=== PATIENT | male | born 1990 | race Caucasian/White ===

== ENCOUNTER 2021-12-04 16:25 | Inpatient (IN) | payer OTHER, SELFPAY ==
--- NOTE | 2021-12-04 16:31 | W.ED.PSYCHS ---
HPI - Psych General: Chief Complaint: Psychiatric Symptoms Stated Complaint: SI ATTEMPT Time Seen by Provider: 12/04/21 16:29 Source: patient Mode of arrival: EMS History of Present Illness: 31-year-old male presents to the emergency room via EMS after a suicide attempt at [facility]. Patient has a history of schizophrenia he was on antipsychotics he stopped taking them approximately 6 to 7 days ago. Dates he is been hearing voices and had time to kill himself and tried to kill himself by using a belt on his neck. He is complaining of some laryngeal discomfort is not had any difficulty breathing. He did not have any loss of consciousness he denies any other attempt to harm himself. He is unsure what his previous medication was. Patient has history of drug and alcohol abuse related to DUIs which resulted in a court ordered stay at [facility] complaint: suicidal ideation Onset (ago): minute(s) Duration: constant History of same: Yes Relieving factors: medication Exacerbating factors: none Associated symptoms: Reports auditory hallucinations and suicidal ideation If self harm: admits thoughts of self harm, has plan and has acted on plan Details of plan: Attempts to harm himself by hanging himself with a belt Review of Systems Const: Denies: fever(s), chills, body aches, change in appetite, fatigue or malaise ENMT: Reports: throat pain, odynophagia and hoarseness; Denies: ear or mastoid pain, nasal discharge or nasal congestion Card: Denies: chest pain, edema, dyspnea on exertion or orthopnea Resp: Denies: dyspnea, productive cough or non-productive cough GI: Denies: abdominal pain, nausea, vomiting, hematemesis, coffee ground emesis, diarrhea, constipation, bloating, hematochezia or melena Psych: Reports: auditory hallucinations and suicidal ideation PFS ED PFSH: Medical History Schizophrenia Surgical History No significant past surgical history Social History Alcohol intake: current Substance/Drug Use: current Physical Exam Const: GENERAL APPEARANCE: cooperative and comfortable ORIENTATION/CONSCIOUSNESS: Yes awake, Yes oriented to person, Yes oriented to place and Yes oriented to time HENMT: COMMON NORMALS: normocephalic, atraumatic and hearing grossly normal bilaterally HEAD & SCALP: normocephalic and atraumatic Neck/C-Spine: COMMON NORMALS: full ROM, no lymphadenopathy, supple and no JVD Resp: COMMON NORMALS: normal respiratory effort, No retractions, No use of accessory muscles and clear to auscultation bilaterally AUSCULTATION: clear to auscultation bilaterally Cardio: COMMON NORMALS: no JVD, regular rate, regular rhythm and No murmurs present (Cardio) RATE: regular rate RHYTHM: regular rhythm GI: COMMON NORMALS: Soft to palpation and No hepatosplenomegaly present AUSCULTATION: Yes normoactive bowel sounds PALPATION: Yes Soft to palpation, No Tenderness to palpation present (GI), No Guarding due to palpation present (GI) and Yes No hepatosplenomegaly present Extremity: COMMON NORMALS: normal to inspection, capillary refill normal, no clubbing, cyanosis or edema, no calf tenderness and no pedal edema Neuro: SENSORIUM/ORIENTATION: Yes oriented to person, Yes oriented to place and Yes oriented to time Skin: COMMON NORMALS: no rashes or lesions noted GENERAL SKIN EXAM: no rashes or lesions noted Course Vital Signs: Vital signs: Vital Signs Temperature 98 F 12/06/21 06:00 Pulse Rate 88 12/06/21 06:00 Respiratory Rate 16 12/06/21 06:00 Blood Pressure 96/60 12/06/21 06:00 Pulse Oximetry 97 12/06/21 06:[address] [facility] - Psych Medical Decision Making Patient is acutely psychotic with auditory visual hallucination as well as suicidal ideation with attempt to advance lethality by hanging himself. CT of the neck is unremarkable discussed Dr. Burgess orders written admit for acute psychosis and suicidal ideation with attempt. Lab Data I reviewed the patient's lab results. : 12/04/21 17:40 12/04/21 17:[address] 12/04/21 16:37 IMPRESSION: 1. No acute findings. 2. Incidental findings above. Laboratory Results WBC 8.0 10^3/uL (4.0-10.0) 12/04/21 17:40 RBC 4.34 10^6/uL (4.1-5.3) 12/04/21 17:40 Hgb 12.9 g/dL (11.7-16.6) 12/04/21 17:40 Hct 40.2 % (42.0-52.0) L 12/04/21 17:40 MCV 92.6 fl (80-94) 12/04/21 17:40 MCH 29.7 pg (28.0-34.0) 12/04/21 17:40 MCHC 32.1 g/dL (30.0-36.0) 12/04/21 17:40 RDW 12.7 % (12.1-15.1) 12/04/21 17:40 Plt Count 179 10^3/cmm (130-400) 12/04/21 17:40 MPV 11.2 fL (7.4-10.4) H 12/04/21 17:40 Neut % (Auto) 56.7 % 12/04/21 17:40 Lymph % (Auto) 28.4 % 12/04/21 17:40 Lee % (Auto) 8.0 % 12/04/21 17:40 Eos % (Auto) 5.8 % 12/04/21 17:40 Baso % (Auto) 1.0 % 12/04/21 17:40 Neut # (Auto) 4.56 10^3/uL (1.8-7.7) 12/04/21 17:40 Lymph # (Auto) 2.3 10^3/uL (0.8-4.8) 12/04/21 17:40 Lee # (Auto) 0.6 10^3/uL (0.2-0.9) 12/04/21 17:40 Eos # (Auto) 0.5 10^3/uL (0.0-0.8) 12/04/21 17:40 Baso # (Auto) 0.1 10^3/uL (0.0-0.1) 12/04/21 17:40 Nucleated RBC % (auto) 0 % 12/04/21 17:40 Nucleated RBCs # 0.0 /100WBC 12/04/21 17:40 Sodium 137 mmol/L (136-145) 12/04/21 17:40 Potassium 4.1 mmol/L (3.5-5.1) 12/04/21 17:40 Chloride 102 mmol/L (98-107) 12/04/21 17:40 Carbon Dioxide 23 mmol/L (22-29) 12/04/21 17:40 Anion Gap 16.1 (5-19) 12/04/21 17:40 BUN 11 mg/dL (6-20) 12/04/21 17:40 Creatinine 0.7 mg/dL (0.7-1.2) 12/04/21 17:40 GFR Calculation 130.7 mL/min (90-130) H 12/04/21 17:40 Glucose 85 mg/dL (65-115) 12/04/21 17:40 Calculated Osmolality 283 mOsm/kg (285-295) L 12/04/21 17:40 Calcium 9.3 mg/dL (8.5-10.5) 12/04/21 17:40 Total Bilirubin 0.2 mg/dL (0.15-1.2) 12/04/21 17:40 AST 32 U/L (0-40) 12/04/21 17:40 ALT 40 U/L (0-41) 12/04/21 17:40 Alkaline Phosphatase 108 IU/L (40-130) 12/04/21 17:40 Total Protein 6.8 g/dL (6.6-8.7) 12/04/21 17:40 Albumin 4.1 g/dL (3.5-5.2) 12/04/21 17:40 Globulin 2.7 g/dL (1.3-4.6) 12/04/21 17:40 Salicylates < 0.3 mg/dL (3-10) L 12/04/21 17:40 Acetaminophen < 5.0 ug/mL (10-30) L 12/04/21 17:40 Discharge Plan Discharge Admit Provider: Geremias Burgess Condition: Stable Coding Level of Care Code ED Server Programmer for Chg Fwd Exam Comprehensive
[2021-12-04 16:33] VITALS: BMI 29.8
--- NOTE | 2021-12-04 16:37 | CTR_ITS ---
PROCEDURE INFORMATION: Exam: CT Neck With Contrast Exam date and time: 12/04/2021 4:37 PM Age: 31 years old Clinical indication: Injury or trauma; Constriction/strangulation; Patient HX: Strangulation attempted suicide; Additional info: Strangulation injury to the neck TECHNIQUE: Imaging protocol: Computed tomography images of the neck with contrast. Radiation optimization: All CT scans at this facility use at least one of these dose optimization techniques: automated exposure control; mA and/or kV adjustment per patient size (includes targeted exams where dose is matched to clinical indication); or iterative reconstruction. Contrast material: OMNI 300; Contrast volume: 95 ml; Contrast route: INTRAVENOUS (IV); COMPARISON: No relevant prior studies available. RADIATION DOSE METRICS: Total DLP (mGy-cm): 521.98 FINDINGS: Brain: The visible portion of the brain is normal. Orbital cavity: The orbits are unremarkable. Mastoid air cells: Trace right mastoid effusion. Coalescent air-filled left mastoid air cells communicate with the middle ear cavity. There is cerumen filling the left external auditory canal. Paranasal sinuses: Mucosal thickening ethmoid sinuses and mucous retention cyst in the left maxillary sinus. There is no fluid in the paranasal sinuses to suggest acute sinusitis. Nasopharynx: The nasopharynx is unremarkable. There is no significant pharyngeal tonsillar enlargement. Dental: Multiple bilateral dental caries. Oropharynx: The oropharynx is unremarkable. There is no significant palatine tonsillar enlargement. Hypopharynx: The hypopharynx is unremarkable. There is no significant lingual tonsillar enlargement. Larynx: The larynx and epiglottis are normal. Retropharyngeal space: There is no fluid or edema in the retropharyngeal space. Submandibular/Parotid glands: Normal. Glands are normal in size. Thyroid: The thyroid gland is unremarkable. Lymph nodes: There is no cervical or supraclavicular lymphadenopathy. Trachea: The visible portion of the trachea is normal. Lungs: Lung apices are clear. Bones/joints: Spinal alignment is normal. Vertebral body height is maintained. There is mild degenerative disc disease in the cervical spine. No acute fracture. Vasculature: The carotid and vertebral arteries and internal jugular veins are unremarkable as visualized. Soft tissues: No edema. CT/CT neck w con* [id number] IMPRESSION: 1. No acute findings. 2. Incidental findings above.
[2021-12-04 16:41] VITALS: BP 136/82; PULSE 85; RESP 17; TEMP 37; O2SAT 98
[2021-12-04] MEDS: iohexol 300 mg/mL 100 mL Btl IV (16:55)
[2021-12-04 17:58] LABS: Basophils # 0.1 10^3/uL (0.0-0.1); Eosinophils # 0.5 10^3/uL (0.0-0.8); Eosinophils % 5.8 %; Hematocrit 40.2 % (42.0-52.0); Hemoglobin 12.9 g/dL (11.7-16.6); Lymphocytes # 2.3 10^3/uL (0.8-4.8); Lymphocytes % 28.4 %; Mean Corpuscular HGB Conc 32.1 g/dL (30.0-36.0); Mean Corpuscular Hemoglobin 29.7 pg (28.0-34.0); Mean Corpuscular Volume 92.6 fl (80-94); Mean Platelet Volume 11.2 fL (7.4-10.4); Monocytes # 0.6 10^3/uL (0.2-0.9); Neutrophils # 4.56 10^3/uL (1.8-7.7); Neutrophils % 56.7 %; Nucleated Red Blood Cells % 0 %; Platelet Count 179 10^3/cmm (130-400); Red Blood Count 4.34 10^6/uL (4.1-5.3); Red Cell Distribution Width 12.7 % (12.1-15.1)
[2021-12-04 18:34] LABS: Alanine Aminotransferase 40 U/L (0-41); Albumin Level 4.1 g/dL (3.5-5.2); Alkaline Phosphatase 108 IU/L (40-130); Anion Gap 16.1 (5-19); Aspartate Amino Transferase 32 U/L (0-40); Blood Urea Nitrogen 11 mg/dL (6-20); Calcium 9.3 mg/dL (8.5-10.5); Carbon Dioxide 23 mmol/L (22-29); Chloride 102 mmol/L (98-107); Globulin 2.7 g/dL (1.3-4.6); Glomerular Filtration Rate 130.7 mL/min (90-130); Glucose 85 mg/dL (65-115); Osmolality Calculated 283 mOsm/kg (285-295); Potassium 4.1 mmol/L (3.5-5.1); Sodium 137 mmol/L (136-145); Total Bilirubin 0.2 mg/dL (0.15-1.2); Total Protein 6.8 g/dL (6.6-8.7)
[2021-12-04 18:41] LABS: Acetaminophen < 5.0 ug/mL (10-30); Salicylate < 0.3 mg/dL (3-10)
--- NOTE | 2021-12-04 19:22 | PC.NURSE ---
Attempted to call report at this time and they was told the NPU staff was still in report.
[2021-12-04 19:44] VITALS: BP 132/78; PULSE 78; RESP 18; O2SAT 96
[2021-12-04 20:00] VITALS: BP 136/90; PULSE 80; RESP 17; TEMP 36.8; O2SAT 97
[2021-12-04] MEDS: nicotine 2 mg Gum BUCCAL (20:42)
[2021-12-04] MEDS: hyDROXYzine 25 mg Capsule 50 MG PO (20:42)
[2021-12-04] MEDS: trazodone 50 mg Tablet PO (20:42)
[2021-12-04] MEDS: OLANZapine 5 mg ODT PO (21:46)
[2021-12-04] MEDS: buprenorphine-naloxone 4-1 mg Film 2 EACH SUBLINGUAL (21:46)
[2021-12-05 05:43] VITALS: BP 115/69; PULSE 100; RESP 20; TEMP 36.6; O2SAT 97
[2021-12-05 06:00] VITALS: BMI 29.8
[2021-12-05] MEDS: buprenorphine-naloxone 4-1 mg Film 2 EACH SUBLINGUAL ×3 (06:16→16:47)
[2021-12-05] MEDS: hyDROXYzine 25 mg Capsule 50 MG PO ×3 (06:16→20:43)
[2021-12-05] MEDS: nicotine 2 mg Gum BUCCAL ×5 (06:16→20:43)
[2021-12-05] MEDS: OLANZapine 5 mg TABLET 15 MG PO (08:54)
[2021-12-05] MEDS: escitalopram 10 mg Tablet PO (08:54)
[2021-12-05] MEDS: OLANZapine 5 mg ODT PO (11:50)
[2021-12-05 14:00] VITALS: BP 100/61; PULSE 71; RESP 18; TEMP 36.3; O2SAT 93
[2021-12-05] MEDS: paliperidone ER 6 mg Tablet PO (14:06)
--- NOTE | 2021-12-05 14:33 | P.NPUHP_ITS ---
Providers/Chief Complaint Admitting Physician: Geremias Burgess MD Chief Complaint: SI ATTEMPT HPI NPU History of Present Illness Adrian Pike is a 31 year old male who presented to the emergency department with the following report: Stated Complaint: SI ATTEMPT Time Seen by Provider: 12/04/21 16:29 Source: patient Mode of arrival: EMS History of Present Illness:?? 31-year-old male presents to the emergen cy room via EMS after a suicide attempt at [facility].? Patient has a history of schizophrenia he was on antipsychotics he stopped taking them approximately 6 to 7 days ago.? Dates he is been hearing voices and had time to kill himself and tried to kill himself by using a belt on his neck.? He is complaining of some laryngeal discomfort is not had any difficulty breathing.? He did not have any loss of consciousness he denies any other attempt to harm himself.? He is unsure what his previous medication was.? Patient has history of drug and alcohol abuse related to DUIs which resulted in a court ordered stay at [facility] complaint: suicidal ideation Onset (ago): minute(s) Duration: constant History of same: Yes Relieving factors: medication Exacerbating factors: none Associated symptoms: Reports auditory hallucinations and suicidal ideation If self harm: admits thoughts of self harm, has plan and has acted on plan Details of plan: Attempts to harm himself by hanging himself with a belt He was admitted to the neuropsychiatric unit for definitive treatment of those issues. He presents today reporting that he has been hospitalized once before in [place], [place] and reports that he did outpatient services at [facility]. He reports he is on Lexapro, Suboxone, and Zyprexa. He reports he smokes about three cigarettes a day, denies alcohol, marijuana or any other illicit drugs. He reports that he has had a problem with opiates and methamphetamine as well reporting that he has been on Suboxone for about two years. In July, he did relapse with methamphetamines and opiates. He reports that he has been to rehab about five times and was currently in [facility] before he came here. He reports he has had two DUIs in the past but denies any possession charges or specifically drug related charges. He reports that he first started having issues when he was about 20 years old and started using drugs. He reports he has always 'kind of had issues' but nothing that could be pinpointed. He reports th at he started out with pain pills and then he had full blown addiction; he reports that he has had methamphetamine use sporadically in his life but reports that he has never before heard voices in his life but last July he was initially focusing on the fact he had stopped taking his Klonopin which he reports was very helpful in stopping the voices back in July. What he did not share initially was methamphetamines were a significant part of his use during this time when he first heard voices. We had a long discussion about the impact methamphetamine can have in perceptual disturbances. He reports that in general he had done pretty well with his addiction in the previous five years prior to July. He reports he has never had a suicide attempt but he does report that he did have some self injurous behavior during the time in July when he was using methamphetamine and had tried acid as well. We discussed the risks, benefits and alternatives of discontinuing the Zyprexa eventually but initiating Invega 6mg q daily and he understood and agreed to proceed as is documented in this note. We agreed we would also take a look at his anxiety medication moving forward as well. He had endorsed lethality but on a certain level there were concerns about malingering because as soon as we had a conversation about the medications, he was very focused on when he would be discharged. Psychiatric History: As above. Substance Abuse History: As above Family History: He reports mental health and addiction issues on his father's side of the family but denies suicide attempts or completions on either side of the family. Developmental History: He denies any issues with his or delivery, learned to walk and talk and met his developmental milestones ontime, but reports he did have speech therapy when he went to school. Denies needing learning support, emotional support or special education classes. Psychosocial History: He reports his parents were together when he was born and stayed together until he was around [age] years old. He also shared the reason his parents was his father went to detention and his mother eventually ended up marrying someone else which he reports was a fairly stressful moment in his life. He reports he has a younger sister who is a product of the same union but denies any other siblings from his mother or father. He reports that his childhood was good and denies any emotional, physical or sexual abuse. He denied any other avery or traumas in his life. 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 He endorses being heterosexual with his longest relationship being two and a half years. He reports he has been and once, denies any children. He has never been in the and endorses being a Pentecostal. 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 He reports that he is at [facility] now but reports that when he is not, he has his own house where he lives alone. He reports that recently he had been living with his mother secondary to having a roommate that he allowed to stay with him who had drugs all the time which made it very difficult for him to manage his sobriety. Legal History: He reports he has been in longterm three times for two days which he called a 'shock treatment'. Medical History: He denies any significant medical issues though his BMI is borderline obese. Meds NPU Home Medications Medication Instructions Recorded Confirmed Last Taken Type escitalopram oxalate 10 mg tablet 10 mg PO DAILY 12/04/21 12/04/21 12/04/21 History hydroxyzine HCl 25 mg tablet 25 mg PO Q6H PRN 12/04/21 12/04/21 Unknown History olanzapine 15 mg tablet 15 mg PO DAILY 12/04/21 12/04/21 Unknown History trazodone 50 mg tablet 50 mg PO BEDTIME 12/04/21 12/04/21 12/03/21 History Allergies Allergy/AdvReac Type Severity Reaction Status Date / Time No Known Allergies Allergy Verified 12/04/21 16:30 [facility] NPU PFSH: Medical History (Updated 12/05/21 @ 19:30 by Geremias Burgess MD) Schizophrenia Surgical History (Updated 12/04/21 @ 16:44 by Guille Melara DO) No significant past surgical history Social History (Updated 12/04/21 @ 16:44 by Guille Melara DO) Alcohol intake: current Substance/Drug Use: current Mental Status Exam MSE Comments: This is an overweight versus obese white male in hospital scrubs with limited grooming and eye contact. No abnormal movements except for mild psychomotor retardation. Cooperative with exam in no acute distress. Speech was normal rate and decreased volume. Patient mood described as anxious, affect slightly subdued. Thought process, organized. Thought content: patient denies any suicidal or homicidal ideation, he endorsed paranoia but no delusions were noted, and he endorsed auditory hallucinations but denied visual hallucinations but did not appear to be attending to internal stimuli. Attention and concentration were intact and memory appeared reliable but was not formally tested. He is alert and oriented three times. Insight and judgement appear limited. Impulse control is limited. Vitals/I&O/Wt Last Vital Signs Temp 97.3 F L 12/05/21 14:00 Pulse 71 12/05/21 14:00 Resp 18 12/05/21 14:00 BP 100/61 12/05/21 14:00 Pulse Ox 93 12/05/21 14:00 Weight last 48 hrs Weight 83.915 kg Data NPU : 12/04/21 17:40 12/04/21 17:40 A&P Assessment and plan (1) Schizophrenia: Status: Acute (2) Opioid dependence on agonist therapy: Status: Acute (3) Methamphetamine dependence: Status: Acute (4) Auditory hallucination: Status: Acute Plan This is a 31 year old white male with a long history of addiction, more recent history of auditory hallucinations which he reports some are command in nature telling him to kill himself, with significant issues with opiates and methamphetamines who presents from [facility] reporting that his symptoms are not currently being managed by his medications. 1. Continue all current medication except initiate Invega 6mg po am and plan to discontinue Zyprexa and will consider Propranolol or Neurontin to assist with anxiety after he has demonstrated tolerating the Invega today. 2. Encourage individual, group and milieu therapy 3. Continue q-15 minute check for safety 4. Recommend sober living treatment at the highest level of care to which the patient is willing to commit. Involuntary Hold Information 96 Hour Hold: 96 Hour Involuntary Admission: No Attestations NPU Medical Necessity Statement*: Inpatient hospitalization is medically necessary and the clinically appropriate intervention at this time. We will monitor medications and make changes as indicated. Patient will be in the hospital for over two midnights. Likely length of stay is two to four days Coding Level of Care Code Acute Social Sciences Professor for Miko Babb Diagnoses Schizophrenia F20.9 Opioid dependence on agonist therapy F11.20 Methamphetamine dependence F15.20 Auditory hallucination R44.0
[2021-12-05] MEDS: trazodone 50 mg Tablet PO (20:43)
[2021-12-05 20:50] VITALS: BP 114/67; PULSE 71; RESP 17; TEMP 36.7; O2SAT 97
[2021-12-06] MEDS: nicotine 2 mg Gum BUCCAL ×4 (02:54→11:48)
[2021-12-06 06:00] VITALS: BP 96/60; PULSE 88; RESP 16; TEMP 36.6; O2SAT 97
[2021-12-06] MEDS: buprenorphine-naloxone 4-1 mg Film 2 EACH SUBLINGUAL ×2 (06:29→11:48)
[2021-12-06] MEDS: paliperidone ER 6 mg Tablet PO (09:45)
[2021-12-06] MEDS: escitalopram 10 mg Tablet PO (09:45)
[2021-12-06] MEDS: OLANZapine 5 mg TABLET 15 MG PO (09:45)
--- NOTE | 2021-12-06 13:05 | NPU.GN ---
[facility] Unit Group Topic: Whine Barrel Activity General Mood of Group: Adrian did attend and participate in group today. His hygiene was good. He was social with others.
--- NOTE | 2021-12-06 13:54 | P.NPUDS_ITS ---
Diagnoses at Discharge Discharge Diagnosis (1) Schizophrenia: Status: Acute (2) Opioid dependence on agonist therapy: Status: Acute (3) Methamphetamine dependence: Status: Acute (4) Auditory hallucination: Status: Acute Reason for Visit Reason for Visit: SI ATTEMPT Brief History: History of Present Illness Adrian Pike is a 31 year old male who presented to the emergency department with the following report: Stated Complaint: SI ATTEMPT Time Se en by Provider: 16:29 [facility] e: patient Mode of arrival: EMS? ? History of Present Illness:??? 31-year-old male presents to the em ergency room via E [facility] after a suicide attempt at [facility].? Patient h as a history of sc hizophrenia he was on antipsychotics he stopped taking them approximatel y 6 to 7 days ago. ? Dates he is been hearing voices an d had time to kill himself and tried to kill himself b y using a belt on his neck.? He is c omplaining of some laryngeal discomf ort is not had any difficulty breath ing.? He did not h ave any loss of co nsciousness he den ies any other atte mpt to harm himsel f.? He is unsure w hat his previous m edication was.? Jani ortega has history of drug and alcoho l abuse related to DUIs which result ed in a court orde red stay at [facility] complaint : suicidal ideatio n Onset (ago): min ivanof bay(s) Duration: c onstant History of same: Yes Relievi ng factors: medica tion Exacerbating factors: none Asso ciated symptoms: R eports auditory marshall llucinations and s uicidal ideation I f self harm: admit s thoughts of self harm, has plan an d has acted on reinier n Details of plan: Attempts to harm himself by hanging himself with a be lt He was admitted to the neuropsychiatric unit for definitive treatment of those issues. He presents today reporting that he has been hospitalized once before in [place], [place] and reports that he did outpatient services at [place]. He reports he is on Lexapro, Suboxone, and Zyprexa. He reports he smokes about three cigarettes a day, denies alcohol, marijuana or any other illicit drugs. He reports that he has had a problem with opiates and methamphetamine as well reporting that he has been on Suboxone for about two years. In July, he did relapse with methamphetamines and opiates. He reports that he has been to rehab about five times and was currently in [facility] before he came here. He reports he has had two DUIs in the past but denies any possession charges or specifically drug related charges. He reports that he first started having issues when he was about 20 years old and started using drugs. He reports he has always 'kind of had issues' but nothing that could be pinpointed. He reports that he started out with pain pills and then he had full blown addiction; he reports that he has had methamphetamine use sporadically in his life but reports that he has never before heard voices in his life but last July he was initially focusing on the fact he had stopped taking his Klonopin which he reports was very helpful in stopping the voices back in July. What he did not share initially was methamphetamines were a significant part of his use during this time when he first heard voices. We had a long discussion about the impact methamphetamine can have in perceptual disturbances. He reports that in general he had done pretty well with his addiction in the previous five years prior to July. He reports he has never had a suicide attempt but he does report that he did have some self injurous behavior during the time in July when he was using methamphetamine and had tried acid as well. We discussed the risks, benefits and alternatives of discontinuing the Zyprexa eventually but initiating Invega 6mg q daily and he understood and agreed to proceed as is documented in this note. We agreed we would also take a look at his anxiety medication moving forward as well. He had endorsed lethality but on a certain level there were concerns about malingering because as soon as we had a conversation about the medications, he was very focused on when he would be discharged. Psychiatric History: As above. Substance Abuse History: As above Family History: He reports mental health and addiction issues on his father's side of the family but denies suicide attempts or completions on either side of the family. Developmental History: ? He denies any issues with his or delivery, learned to walk and talk and met his developmental milestones ontime, but reports he did have speech therapy when he went to school. Denies needing learning support, emotional support or special education classes. Psychosocial History: He reports his parents were together when he was born and stayed together until he was around [age] years old. He also shared the reason his parents was his father went to assisted and his mother eventually ended up marrying someone else which he reports was a fairly stressful moment in his life. He reports he has a younger sister who is a product of the same union but denies any other siblings from his mother or father. He reports that his childhood was good and denies any emotional, physical or sexual abuse. He denied any other major traumas in his life. 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 He endorses being heterosexual with his longest relationship being two and a half years. He reports he has been and once, denies any children. He has never been in the and endorses being a [employer]ism. 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 He reports that he is at [facility] now but reports that when he is not, he has his own house where he lives alone. He reports that recently he had been living with his mother secondary to having a roommate that he allowed to stay with him who had drugs all the time which made it very difficult for him to manage his sobriety. Legal History: He reports he has been in shelter three times for two days which he called a 'shock treatment'. Medical History: He denies any significant medical issues though his BMI is borderline obese. Hospital Course Hospital Course On the unit he slowly acclimated to the individual, group and milieu therapies.? We started invega 6 mg every morning.? He showed marked improvement and was able to contract for safety prior to discharge. His mother was able to pick him up and reported she had convinced [facility] to take him back so he could complete the program. He was comitted to his recovery but ambivalent about returning, but [facility] was the entity to suggest he not finish the last days.? During the hospitalization, patient had routine laboratory studies which were within normal limits except for few outliers.? Additionally there was a general medical evaluation which was also within normal limits and revealed no new acute processes. At the time of discharge, he was absent psychosis or lethality.? Mood and anxiety were well managed.? Patient endorsed a plan to avoid all drugs of abuse and follow-up with the aftercare recommendations of the treatment team.? Patient was evaluated and deemed to be absent credible lethality, and had achieved the maximum benefit from an inpatient hospitalization, so was discharged. Involuntary Hold Information 96 Hour Hold: 96 Hour Involuntary Admission: No Mental Status Exam MSE Comments: This is an overweight versus obese white male in hospital scrubs with limited grooming and eye contact. No abnormal movements except for mild psychomotor retardation. Cooperative with exam in no acute distress. Speech was normal rate and decreased volume. Patient mood described as better, affect cog ruent. Thought process, organized. Thought content: patient denies any suicidal or homicidal ideation, he endorsed resolving paranoia but no delusions were noted, and he endorsed lessening auditory hallucinations but denied visual hallucinations but did not appear to be attending to internal stimuli. Attention and concentration were intact and memory appeared reliable but was not formally tested. He is alert and oriented three times. Insight and judgement appear limited. Impulse control is limited. Discharge Data Studies Completed and Pending: Completed Studies During Hospitalization Category Date Time Status CT neck w con* 70 491 Stat Cat Scan 12/04/21 16:37 Completed Pending at discharge Category Date Time Status Drug Screen, Urin e Routine Lab 12/05/21 21:10 Ordered Urinalysis Routin e Lab 12/05/21 21:10 Ordered Radiology Impressions Neck CT 12/04/21 16:37 IMPRESSION: 1. No acute findings. 2. Incidental findings above. Laboratory Results WBC 8.0 10^3/uL (4.0- 10.0) 12/04/21 17:40 RBC 4.34 10^6/uL (4.1 -5.3) 12/04/21 17:40 Hgb 12.9 g/dL (11.7-1 6.6) 12/04/21 17:40 Hct 40.2 % (42.0-52.0 ) L 12/04/21 17:40 MCV 92.6 fl (80-94) 12/04/21 17:40 MCH 29.7 pg (28.0-34. 0) 12/04/21 17:40 MCHC 32.1 g/dL (30.0-3 6.0) 12/04/21 17:40 RDW 12.7 % (12.1-15.1 ) 12/04/21 17:40 Plt Count 179 10^3/cmm (130 -400) 12/04/21 17:40 MPV 11.2 fL (7.4-10.4 ) H 12/04/21 17:40 Neut % (Auto) 56.7 % 12/04/21 17:40 Lymph % (Auto) 28.4 % 12/04/21 17:40 Wilkes % (Auto) 8.0 % 12/04/21 17:40 Eos % (Auto) 5.8 % 12/04/21 17:40 Baso % (Auto) 1.0 % 12/04/21 17:40 Neut # (Auto) 4.56 10^3/uL (1.8 -7.7) 12/04/21 17:40 Lymph # (Auto) 2.3 10^3/uL (0.8- 4.8) 12/04/21 17:40 Wilkes # (Auto) 0.6 10^3/uL (0.2- 0.9) 12/04/21 17:40 Eos # (Auto) 0.5 10^3/uL (0.0- 0.8) 12/04/21 17:40 Baso # (Auto) 0.1 10^3/uL (0.0- 0.1) 12/04/21 17:40 Nucleated RBC % (a uto) 0 % 12/04/21 17:40 Nucleated RBCs # 0.0 /100WBC 12/04/21 17:40 Sodium 137 mmol/L (136-1 45) 12/04/21 17:40 Potassium 4.1 mmol/L (3.5-5 .1) 12/04/21 17:40 Chloride 102 mmol/L (98-10 7) 12/04/21 17:40 Carbon Dioxide 23 mmol/L (22-29) 12/04/21 17:40 Anion Gap 16.1 (5-19) 12/04/21 17:40 BUN 11 mg/dL (6-20) 12/04/21 17:40 Creatinine 0.7 mg/dL (0.7-1. 2) 12/04/21 17:40 GFR Calculation 130.7 mL/min (90- 130) H 12/04/21 17:40 Glucose 85 mg/dL (65-115) 12/04/21 17:40 Calculated Osmolal ity 283 mOsm/kg (285- 295) L 12/04/21 17:40 Calcium 9.3 mg/dL (8.5-10 .5) 12/04/21 17:40 Total Bilirubin 0.2 mg/dL (0.15-1 .2) 12/04/21 17:40 AST 32 U/L (0-40) 12/04/21 17:40 ALT 40 U/L (0-41) 12/04/21 17:40 Alkaline Phosphata se 108 IU/L (40-130) 12/04/21 17:40 Total Protein 6.8 g/dL (6.6-8.7 ) 12/04/21 17:40 Albumin 4.1 g/dL (3.5-5.2 ) 12/04/21 17:40 Globulin 2.7 g/dL (1.3-4.6 ) 12/04/21 17:40 Urine Color Cancelled 12/05/21 06:15 Urine Appearance Cancelled 12/05/21 06:15 Urine pH Cancelled 12/05/21 06:15 Ur Specific Gravit y Cancelled 12/05/21 06:15 Urine Protein Cancelled 12/05/21 06:15 Urine Glucose (UA) Cancelled 12/05/21 06:15 Urine Ketones Cancelled 12/05/21 06:15 Urine Blood Cancelled 12/05/21 06:15 Urine Nitrate Cancelled 12/05/21 06:15 Urine Bilirubin Cancelled 12/05/21 06:15 Prot Sulfosalicyli c Acd Cancelled 12/05/21 06:15 Urine Urobilinogen Cancelled 12/05/21 06:15 Ur Leukocyte Alexa ase Cancelled 12/05/21 06:15 Salicylates < 0.3 mg/dL (3-10 ) L 12/04/21 17:40 Urine Opiates Scre en Cancelled 12/05/21 06:15 Acetaminophen < 5.0 ug/mL (10-3 0) L 12/04/21 17:40 Ur Barbiturates Sc reen Cancelled 12/05/21 06:15 Ur Phencyclidine S crn Cancelled 12/05/21 06:15 Ur Amphetamines Sc reen Cancelled 12/05/21 06:15 U Benzodiazepines Scrn Cancelled 12/05/21 06:15 Urine Cocaine Scre en Cancelled 12/05/21 06:15 U Marijuana (THC) Screen Cancelled 12/05/21 06:15 Vitals: Last Vital Signs Temp 98 F 12/06/21 06:00 Pulse 88 12/06/21 06:00 Resp 16 12/06/21 06:00 BP 96/60 12/06/21 06:00 Pulse Ox 97 12/06/21 06:00 Discharge Plan Discharge Patient Disposition: Home Condition: Stable Prescriptions: New paliperidone 6 mg Tablet Extended Release 24hr 6 mg PO DAILY 30 Days Qty: 30 1RF Continued trazodone 50 mg tablet 50 mg PO BEDTIME 30 Days Qty: 30 1RF hydroxyzine HCl 25 mg tablet 25 mg PO Q6H PRN (Reason: anxiety) 30 Days Qty: 120 1RF olanzapine 15 mg tablet 15 mg PO DAILY 30 Days Qty: 30 1RF escitalopram oxalate 10 mg tablet 10 mg PO DAILY 30 Days Qty: 30 1RF buprenorphine-naloxone 8-2 mg tablet, sublingual 1 tab SUBLINGUAL TID 0RF Discharge Orders: Discharge Order (Routine); Ordered 12/06/21 Ordered By: Geremias Burgess Discharge Diet: Regular Discharge Activity: Resume usual activity Patient Instructions: Opioid Safety Discharge Attestations NPU Time Spent in Discharge Care*: less than 30 min Specific Discharge Activities: Specific discharge activities: educating patient, discussing with sample case porter/social workers/dc planners, documenting/other paperwork and evaluating patient/reviewing data Coding Level of Care Code Acute Chg FW DC note Diagnoses Schizophrenia F20.9 Opioid dependence on agonist therapy F11.20 Methamphetamine dependence F15.20 Auditory hallucination R44.0
[2021-12-06 14:04] VITALS: BP 96/60; PULSE 88; RESP 16; TEMP 36.6; O2SAT 97
== END 2021-12-06 14:16 | disposition home or self-care (01) | DRG 885 ==
LOC: ER 17:53 → NP 18:56
PROVIDERS: Family Medicine; Admitting Provider Psychiatry & Neurology Psychiatry; Emergency Provider Psychiatry & Neurology Psychiatry; Visit Provider Psychiatry & Neurology Psychiatry
DX: F20.9 Schizophrenia, unspecified (principal); F15.20 Other stimulant dependence, uncomplicated; F11.20 Opioid dependence, uncomplicated; X83.8XXA Intentional self-harm by other specified means, initial encounter; T14.91XA Suicide attempt, initial encounter; T43.506A Underdosing of unspecified antipsychotics and neuroleptics, initial encounter; Z91.128 Patient's intentional underdosing of medication regimen for other reason; F17.210 Nicotine dependence, cigarettes, uncomplicated; Z81.8 Family history of other mental and behavioral disorders
CPT/HCPCS: 70491; 80053; 80307; 85025; 97165; 99285; J0573; Q9967